=== PATIENT | female | born 1995 | race African-American/Black ===

== ENCOUNTER 2019-07-20 14:28 | Emergency (ER) | payer OTHER ==
[~2019-07-20] VITALS: Ht 165.1 cm; Wt 87.5 kg
[2019-07-20 14:50] VITALS: BP 125/81
== END 2019-07-20 14:50 | disposition short-term general hospital (02) ==
LOC: ER 14:28
DX: O75.89 Other specified complications of labor and delivery (principal); Z86.2 Personal history of diseases of the blood and blood-forming organs and certain disorders involving the immune mechanism; Z3A.37 37 weeks gestation of pregnancy